=== PATIENT | female | born 1960 | race Two or more races ===

== ENCOUNTER 2017-06-11 15:52 | Emergency (ER) | payer OTHER ==
[2017-06-11] MEDS ORDERED: IBUPROFEN 400 MG TABLET (FP) PO ONE ×2 (16:12→17:09)
--- NOTE | 2017-06-11 16:22 | PDOC ---
History of Present Illness - General Chief Complaint: Injury Stated Complaint: LEFT ANKLE PAIN Time Seen by Provider: 06/11/17 15:53 History Source: Patient, Family - History of Present Illness Initial Comments: 06/11/17 16:17 Patient is a 57F with history of HTN here today with left ankle and knee pain after falling down the stairs yesterdays. She denies any prodromal symptoms, saying she simply twisted her ankle for a mechanical fall. She denies head trauma, loss of consciousness, nausea, vomiting, fevers, chills, chest pain, and abdominal pain. She was able to take a few steps afterwards, but is limited by pain. Past History - Past Medical History Allergies/Adverse Reactions: Allergies Allergy/AdvReac Type Severity Reaction Status Date / Time No Known Allergies Allergy Verified 06/11/17 15:53 Home Medications: Ambulatory Orders Acetaminophen [Tylenol] 650 mg PO PRN 06/11/17 Lisinopril 20 mg PO DAILY 06/11/17 Naproxen 500 mg PO BID PRN #20 tablet 06/11/17 Review of Systems - Review of Systems Comments:: 06/11/17 16:19 GENERAL/CONSTITUTIONAL: No fever or chills. No weakness. HEAD, EYES, EARS, NOSE AND THROAT: No change in vision. No ear pain or discharge. No sore throat. CARDIOVASCULAR: No chest pain or shortness of breath RESPIRATORY: No cough, wheezing, or hemoptysis. GASTROINTESTINAL: No nausea, vomiting, diarrhea or constipation. GENITOURINARY: No dysuria, frequency, or change in urination. MUSCULOSKELETAL: Positive for knee and ankle pain. SKIN: No rash NEUROLOGIC: No headache, vertigo, loss of consciousness, or change in strength/ sensation. ENDOCRINE: No increased thirst. No abnormal weight change ALLERGIC/IMMUNOLOGIC: No hives or skin allergy. *Physical Exam - Physical Exam Comments: 06/11/17 16:20 GENERAL: Awake, alert, and fully oriented, in no acute distress L FOOT/ANKLE: Tender over medial malleolus, ecchymosis, and swollen. Neurovascularly intact distal to injury. L KNEE: Tender over inferior aspect of knee. HEAD: No signs of trauma, normocephalic, atraumatic EYES: PERRLA, EOMI, sclera anicteric, conjunctiva clear ENT: Auricles normal inspection, hearing grossly normal, nares patent, oropharynx clear without exudates. Moist mucosa LUNGS: No distress, speaks full sentences, clear to auscultation bilaterally HEART: Regular rate and rhythm, normal S1 and S2, no murmurs, rubs or gallops, peripheral pulses normal and equal bilaterally. ABDOMEN: Soft, nontender, normoactive bowel sounds. No guarding, no rebound. No masses NEUROLOGICAL: Cranial nerves II through XII grossly intact. Normal speech, normal gait, no focal sensorimotor deficits SKIN: Warm, Dry, normal turgor, no rashes or lesions noted. ED Treatment Course - RADIOLOGY Radiology Studies Ordered: Category Date Time Status ANKLE & FOOT-LEFT* [RAD] Stat Radiology 06/11/17 16:11 Ordered KNEE 3 POS-LEFT [RAD] Stat Radiology 06/11/17 16:11 Ordered Medical Decision Making - Medical Decision Making 06/11/17 16:22 57F with history of HTN here today with foot, ankle and knee pain after a mechanical fall. Vital signs stable and normal. Will treat with ibuprofen. Will evaluate with xrays of knee, foot, and ankle. 06/11/17 18:09 X-rays show a distal fibula fracture. Patient was placed in splint. Patient remains neurovascularly intact distal the injury after splinting. Will discharge with ortho follow up and naproxen. *DC/Admit/Observation/Transfer Diagnosis at time of Disposition: Fibula fracture - Discharge Dispostion Disposition: HOME Condition at time of disposition: Good Admit: No - Prescriptions Prescriptions: Naproxen 500 mg PO BID PRN #20 tablet PRN Reason: Pain - Referrals Referrals: Freddie Walker MD [Staff Physician] - Pernell Lyle MD [Staff Physician] - - Patient Instructions Additional Instructions: You were seen today in the ED for a fracture in your lower leg. Keep your leg elevated and do not take off the splint. You must follow up with orthopedic surgery, a referral has been provided for you in your paperwork. Please call to make an appointment. Please return if you have any new, worsening or concerning symptoms. - Post Discharge Activity
--- NOTE | 2017-06-11 16:40 | PDOC ---
Attending Attestation - Resident Resident Name: Gene Chin - ED Attending Attestation I have performed the following: I have examined & evaluated the patient, The case was reviewed & discussed with the resident, I agree w/resident's findings & plan, Exceptions are as noted - HPI HPI: 06/11/17 16:37 57 year old F c/ hx of HTN p/w twisted left ankle yesterday. Was walking down stairs when she twisted her ankle. Has Left knee and left ankle pain. Denies other injuries. Denies numbness, weakness. - Physicial Exam PE: 06/11/17 16:38 GENERAL: Awake, alert, and fully oriented, in no acute distress. HEAD: No signs of trauma EYES: PERRLA, EOMI, sclera anicteric, conjunctiva clear ENT: Auricles normal inspection, hearing grossly normal, nares patent, EXTREMITIES: LLE: 2+ DP pulse. Sensation intact throughout. No tenderness at the 5th metatarsal or navicular points. Tenderness and swelling appreciated to the medial and lateral malleolus. No obvious ankle laxity appreciated. NO tenderness along the tib/fib bone. Mild TTP anterior left ankle but negative anterior/posterior drawer test. NEUROLOGICAL: Cranial nerves II through XII grossly intact. Normal speech SKIN: Warm, Dry, normal turgor, no rashes or lesions noted. - Medical Decision Making 06/11/17 16:39 I agree with the resident's plan to r/o ankle/foot/knee fracture. If xrays negative, pt likely with high degree sprain. CHER wrap, nonweight bearing until cleared by othopedics. Ice, elevation. NSAIDS. 06/11/17 18:10 Mentally displaced however type B acute fracture. Borderline to refill her 6-7 mm. Syndesmotic injury cannot be excluded. Patient was placed in a posterior U-splint and made nonweightbearing. Patient and patient's family was advised that the patient needs to follow up with orthopedist as it is important that without a follow-up, the patient can have difficulties walking and significant morbidity if she does not. Patient instructed not to take off the splint. The patient remains with normal pulses and sensation. Her pain is improved. Return precautions given including uncontrollable pain.
[2017-06-11 17:04] VITALS: BP 111/57; PULSE 86; TEMP 98.2; BMI 32.9
== END 2017-06-11 18:50 | disposition home or self-care (01) ==
LOC: FER 15:52
PROC: 2W3MX1Z Immobilization of Left Lower Extremity using Splint (ICD-10-PCS; principal; 2017-06-11)
DX: S82.402A Unspecified fracture of shaft of left fibula, initial encounter for closed fracture (principal); W10.9XXA Fall (on) (from) unspecified stairs and steps, initial encounter; Y93.89 Activity, other specified; Y92.9 Unspecified place or not applicable; I10 Essential (primary) hypertension
CPT/HCPCS: 73562-TC-LT-FY; 73590-TC-LT-FY; 73610-TC-LT-FY; 73630-TC-LT; 99282-25

== ENCOUNTER 2017-07-01 15:45 | Emergency (ER) | payer OTHER ==
--- NOTE | 2017-07-01 16:40 | PDOC ---
History of Present Illness <DaylinBruno - Last Filed: 07/01/17 16:48> - General History Source: Patient Exam Limitations: No Limitations - History of Present Illness Initial Comments: 07/01/17 16:58 The patient is a 57 year old female with a significant PMH of hypertension who presents to the emergency department with itchiness to her left leg after getting her cast wet today in the shower. The patient was concerned about possible infection prompting her to come to the ER. The patient reports she had the cast placed three weeks ago but is unsure of when the cast will be removed. Patient states she will have a follow-up appointment soon and will ask then about cast removal. The patient denies chest pain, shortness of breath, headache and dizziness. Denies fever, chills, nausea, vomit, diarrhea and constipation. Denies dysuria, frequency, urgency and hematuria. Allergies: NKA Past surgical history: None reported. Social history: No reported alcohol, drug, or cigarette use. <Bailey Barahona - Last Filed: 07/01/17 17:05> - General Chief Complaint: Itching Stated Complaint: ITCHING UNDER LEFT LEG CAST Time Seen by Provider: 07/01/17 16:34 Past History - Past Medical History COPD: No HTN: Yes - Immunization History Immunization Up to Date: Yes - Suicide/Smoking/Psychosocial Hx Smoking History: Never smoked Have you smoked in the past 12 months: No Hx Alcohol Use: No Drug/Substance Use Hx: No Substance Use Type: None <Bruno Mao - Last Filed: 07/01/17 16:48> <Bailey Barahona - Last Filed: 07/01/17 17:05> - Past Medical History Allergies/Adverse Reactions: Allergies Allergy/AdvReac Type Severity Reaction Status Date / Time No Known Allergies Allergy Verified 06/11/17 15:53 Home Medications: Ambulatory Orders Acetaminophen [Tylenol] 650 mg PO PRN 06/11/17 Lisinopril 20 mg PO DAILY 06/11/17 Naproxen 500 mg PO BID PRN #20 tablet 06/11/17 *Physical Exam - Vital Signs Last Vital Signs Temp Pulse Resp BP Pulse Ox 98.4 F 81 16 119/51 97 07/01/17 16:22 07/01/17 16:22 07/01/17 16:22 07/01/17 16:22 07/01/17 16:22 - Physical Exam Comments: 07/01/17 16:56 Vitals: Triage vital signs reviewed General Appearance: No acute distress, well nourished, well developed Head: Atraumatic Eyes: Pupils equal reactive round, extraocular movement intact Abdomen: Soft, nondistended, normal bowel sounds, nontender to palpation Extremities: No evidence of infection. Good cap refill to her toes. No discoloration or pallor. No redness streaking or evidence of lymphangitic spread. Full range of motion to all extremities, no cyanosis, clubbing, or edema Skin: Warm and dry, no rashes or lesions, no rash, no petechiae Neuro: AOX3; Cranial Nerves 2-12 grossly intact, Strength intact to all extremities, Sensation intact to all extremities, gait normal Psych: Normal mood, normal affect <Bailey Barahona - Last Filed: 07/01/17 17:05> Medical Decision Making - Medical Decision Making 07/01/17 16:49 57 years old no significant past medical history presents to the emergency department after getting her cast slightly wet it is itching and she was concern for infection On examination there is no evidence of infection she has good cap refill to her toes there is no discoloration there is no pallor her skin color is normal there is no redness streaking or evidence of lymphangitic spread I advised patient if she feels itchy she can take 1 dose of Benadryl at home she is to follow-up with her orthopedist within 1 week Findings, the need for follow-up and strict return instructions discussed with patient and family. <Bruno Mao - Last Filed: 07/01/17 16:48> *DC/Admit/Observation/Transfer - Discharge Dispostion Admit: No <Bruno Mao - Last Filed: 07/01/17 16:48> - Attestations Scribe Attestion: 07/01/17 16:58 Documentation prepared by Bailey Barahona, acting as manager medical writing for Bruno Mao MD. <Bailey Barahona - Last Filed: 07/01/17 17:05> Diagnosis at time of Disposition: Itching - Discharge Dispostion Condition at time of disposition: Good - Patient Instructions Printed Discharge Instructions: How to Take Care of Your Cast Additional Instructions: If itching persists okay to take 1 pill of Benadryl tonight. Keep cast dry. Follow-up with your orthopedist next week. Return to the emergency department for fever redness streaking red lines significant swelling or for any concerns.
[2017-07-01 16:47] VITALS: BP 119/51; PULSE 81; TEMP 98.4; BMI 33.3
== END 2017-07-01 16:56 | disposition home or self-care (01) ==
LOC: FER 15:45
DX: L29.9 Pruritus, unspecified (principal); I10 Essential (primary) hypertension
CPT/HCPCS: 99281-25

== ENCOUNTER 2018-07-31 12:44 | Emergency (ER) | payer OTHER ==
[2018-07-31 12:57] VITALS: BP 118/61; PULSE 88; TEMP 98.1; BMI 32.4
[2018-07-31] MEDS ORDERED: ACETAMINOPHEN 325 MG TABLET (FP) PO ONE (13:01)
[2018-07-31] MEDS ORDERED: ONDANSETRON *ODT* 4 MG TABLET SL ONE (13:02)
[2018-07-31] MEDS ORDERED: ACETAMINOPHEN 500 MG TABLET (FP) ONE (13:05)
[2018-07-31] MEDS ORDERED: ONDANSETRON *ODT* 4 MG TABLET ONE (13:05)
--- NOTE | 2018-07-31 13:09 | PDOC ---
History of Present Illness - General Chief Complaint: Sore Throat Stated Complaint: SORE THROAT & COUGH X-3-4 DAYS Time Seen by Provider: 07/31/18 12:47 History Source: Patient, Family Exam Limitations: No Limitations - History of Present Illness Initial Comments: 07/31/18 13:09 HPI 58 YOF with h/o HTN presenting with productive cough, nasal congestion, sore throat, n/v x 3 days, not improving. +yellow sputum, no hemoptysis. Decreased appetite but tolerating oral and fluid intake. Has been taking robitussin without relief. Denies fever, chills, chest pain, SOB, palpitation, dizziness, weakness, N, V, D , abdominal pain, bladder and bowel problems, myalgias or arthralgias, leg swelling, No sick contacts or travel. No new changes in medications. No suspicious food intake Allergies: NKA Past Medical History: HTN Social history: Lives with family. No smoking. No alcohol. No illicit drugs. Surgical history: noncontributory PMD: Dr Curry Review of systems Constitutional: no fevers or chills. HEENT: no headache or dizziness. No visual/hearing disturbances. No ear pain. + congestion, +sore throat CVS: no cp or syncope. Resp: no sob. +cough Gastrointestinal: no abdominal pain, no diarrhea. +nausea or vomiting. Genitourinary: no urinary sx, hematuria. MUSCULOSKELETAL: No joint pain and swelling. No neck or back pain. SKIN: no redness or skin changes, no discharge, no rash. No wounds. Hematologic: no easy bruising/bleeding. NEUROLOGIC: No headache, dizziness, LOC or altered mental status. No weakness, numbness or tingling. Allergic/Immunologic: no allergies All other systems reviewed and negative, or as documented in HPI. Physical exam: General: Well appearing, awake and alert, NAD. HEENT: NCAT, PERRL, EOMI, clear conjunctiva, anicteric, moist mucus membranes, clear oropharynx. Airway patent, normal phonation. Uvula midline. No sinus tenderness, TM clear, no pinna tenderness to manipulation. Neck: neck supple, FROM Resp: CTAB, normal and even respirations, no respiratory distress CVS: RRR, no murmurs, 2+ peripheral pulses throughout, no peripheral edema Abdomen: soft, NTND, no peritoneal signs. Back: nontender, normal inspection and ROM MSK: no edema, FLORES x4, ROM intact. No clubbing or cyanosis. normal bulk and tone. Neuro: alert, no focal neuro deficits. Skin: warm and well perfused, cap refill <2 sec, normal color Past History - Past Medical History Allergies/Adverse Reactions: Allergies Allergy/AdvReac Type Severity Reaction Status Date / Time No Known Allergies Allergy Verified 07/31/18 12:46 Home Medications: Ambulatory Orders Lisinopril 20 mg PO DAILY 06/11/17 Albuterol Sulfate Inhaler - [Ventolin HFA Inhaler -] 2 inh PO Q4H #1 inh COPD: No HTN: Yes - Surgical History GI Surgery: Yes (TEMPORARY COLOSTOMY) - Immunization History Immunization Up to Date: Yes - Suicide/Smoking/Psychosocial Hx Smoking History: Never smoked Have you smoked in the past 12 months: No Hx Alcohol Use: No Drug/Substance Use Hx: No Substance Use Type: None *Physical Exam - Vital Signs Last Vital Signs Temp Pulse Resp BP Pulse Ox 98.1 F 88 18 118/61 98 07/31/18 12:45 07/31/18 12:45 07/31/18 12:45 07/31/18 12:45 07/31/18 12:45 ED Treatment Course - RADIOLOGY Radiology Studies Ordered: Category Date Time Status CHEST PA & LAT [RAD] Stat Radiology 07/31/18 12:54 Ordered Medical Decision Making - Medical Decision Making 07/31/18 13:09 hpi as documented VS reviewed, wnl, no respiratory distress, no hypoxia. well appearing CXR no edema or infiltrate, no acute chest pathology Strep test_neg f/u throat cultures most likely viral URI sx, pharyngitis. supportive care, hydration. albuterol prn for cough otc meds as needed for congestion, motrin/tylenol for analgesia as needed. Pt informed of my clinical impression, treatment recommendations and disposition plan. All questions answered to patient's satisfaction and expressed understanding and comfort with this. Reasons for returning to the ED sooner discussed including new or persistent/worsening symptoms with the patient otherwise, follow up with primary care physician. At the time of discharge, the patient is alert, clinically improved, tolerating po and verbalizes understanding of instructions, satisfied with the care received and felt comfortable with the plan. Patient does not suffer from an acute life- threatening medical condition at this time she is safe for outpatient follow- up. 07/31/18 13:48 *DC/Admit/Observation/Transfer Diagnosis at time of Disposition: URI (upper respiratory infection) - Discharge Dispostion Disposition: HOME Condition at time of disposition: Good Decision to Admit order: No - Prescriptions Prescriptions: Albuterol Sulfate Inhaler - [Ventolin HFA Inhaler -] 2 inh PO Q4H #1 inh - Referrals Referrals: Raciel Joyce MD [Primary Care Provider] - - Patient Instructions Printed Discharge Instructions: Cough, DI for Viral Upper Respiratory Infection -- Adult Additional Instructions: 1) Please follow-up with your primary care doctor in the next 1-2 days. Please call tomorrow for for any urgent issues. 2) You were given a copy of the tests performed today. Please bring the results with you and review them with your primary care doctor. Your laboratory / imaging results were normal, negative strep test and normal Chest xray without pneumonia. 3) If you have any worsening of symptoms or any other concerns please return to the ED immediately. Return if worsening symptoms including fevers, headache, vomiting, visual or hearing disturbances, abdominal pain, chest pain, shortness of breath, syncope, dehydration, inability to take things by mouth/vomiting, altered mental status, or worsening concerning symptoms. 4) Please continue taking your home medications as directed. your medications on discharge include albuterol inhaler as described below, and over the counter cough drops or mucinex or sinus decongestant.. side effects may include upset stomach, abdominal pain, vomiting, or diarrhea. do not drink alcohol with your medications. salt water gargles and warm lemon tea is appropriate as well for soothing qualities for sore throat/cough. minimize spread of infection given contagious nature, and cover your mouth and wash your hands adequately with soap and water. Stay well hydrated and rest. May use the albuterol inhaler every 4-6 hours as needed for cough and breathing to clear up your airways. Return precautions include respiratory distress, difficulty breathing, chest pain, lethargy, confusion, dehydration, high fevers or pain. Stay well hydrated and rest adequately. an appointment. If you cannot follow-up with your primary care doctor please return to the ED - Post Discharge Activity
[2018-07-31] MEDS ORDERED: ALBUTEROL SO4 2.5/IPRATROPIUM 0.5 INH SOL 3 ML VIAL.NEB. NEB ONE (13:28)
[2018-07-31] MEDS ORDERED: ALBUTEROL SO4 2.5/IPRATROPIUM 0.5 INH SOL 3 ML VIAL.NEB. NEB SCH (13:30)
== END 2018-07-31 14:16 | disposition home or self-care (01) ==
LOC: FER 12:44
PROC: 3E0F7GC Introduction of Other Therapeutic Substance into Respiratory Tract, Via Natural or Artificial Opening (ICD-10-PCS; principal; 2018-07-31)
DX: J06.9 Acute upper respiratory infection, unspecified (principal); I10 Essential (primary) hypertension
CPT/HCPCS: 71046-TC-FY; 87070; 87880; 99282-25; Q0162